=== PATIENT | female | born 1995 | race Asian ===

== ENCOUNTER 2020-09-21 22:40 | Emergency (ER) | payer SELFPAY ==
[~2020-09-21] VITALS: Ht 170.2 cm; Wt 127.0 kg
[2020-09-21] MEDS ORDERED: SODIUM CHLORIDE 0.9% 1,000 ML IV ONE (23:00)
[2020-09-21 23:11] LABS: BASOPHILS % 0.8 % (0.0-2.0); EOSINOPHILS % 0.7 % (0.0-5.0); HEMATOCRIT. 31.9 % (36.0-48.0); HEMOGLOBIN. 9.7 g/dL (12.0-16.0); LYMPHOCYTES % 26.6 % (20.0-50.0); MEAN CORPUSCULAR HEMOGLOBIN 18.6 pg (28.0-32.0); MEAN PLATELET VOLUME 8.6 fl (7.4-10.4); NEUTROPHILS % 64.9 % (40.0-76.0); PLATELET 194 x1000/uL (130-400); RED BLOOD CELL COUNT 5.23 mill/uL (4.2-5.4); RED CELL DISTRIBUTION WIDTH 16.5 % (11.6-14.6)
[2020-09-21 23:18] LABS: CHLORIDE 106 mEq/L (98-107)
[2020-09-21 23:19] LABS: HCG SCREEN NEGATIVE
[2020-09-21 23:21] LABS: PROTHROMBIN TIME 11.2 sec (9.6-11.0)
[2020-09-21 23:24] LABS: PLATELET ESTIMATE NORMAL
[2020-09-22] MEDS ORDERED: KEPP500 MT (01:15)
[2020-09-22] MEDS ORDERED: LEVETIRACETAM 500MG PREMIX 100 ML IV ONE (01:30)
[2020-09-22 02:00] VITALS: BP 141/32
== END 2020-09-22 02:08 | disposition home or self-care (01) ==
LOC: ER 22:40
DX: R55 Syncope and collapse (principal); F17.200 Nicotine dependence, unspecified, uncomplicated
CPT/HCPCS: 36415; 70450; 71045; 80053; 83605; 83880; 84484; 84703; 85025; 85610; 93005; 96361; 96365; 99285; J1953; J7030